=== PATIENT | female | born 1945 | race Caucasian/White ===

== ENCOUNTER 2020-08-08 15:13 | Observation (INO) | payer MEDICARE, BC ==
--- NOTE | 2020-08-08 16:30 | EDM.PDOC ---
ED HPI GENERAL MEDICAL PROBLEM - General Chief Complaint: General Stated Complaint: NOT FEELING WELL Time Seen by Provider: 08/08/20 16:15 Source of Information: Reports: Patient History Limitations: Reports: No Limitations - History of Present Illness INITIAL COMMENTS - FREE TEXT/NARRATIVE: Patient states overall that she is just not feeling well ongoing now for 3 to 4 days she says maybe her shortness of breath is gotten a little worse in the last 12 24 hrs. and she is also had diarrhea 3 times a day soft brownish stool she states about 3 times during the day. She says she has been eating and drinking normally she had marci crackers for breakfast and oatmeal for lunch today and has been drinking plenty of water with no issues she denies any pain at this time. She has no other complaints at this time. Onset: Gradual Duration: Day(s): Associated Symptoms: Reports: Shortness of Breath. Denies: Confusion, Chest Pain, Cough, cough w sputum, Diaphoresis, Fever/Chills, Headaches, Loss of Appetite, Malaise, Nausea/Vomiting (Patient states she has normal daily shortness of breath unsure if this is may be just a little bit worse she denies any ESTRADA PND orthopnea no signs symptoms any congestive heart failure she denies any lower extremity edema), Syncope - Related Data Allergies Allergy/AdvReac Type Severity Reaction Status Date / Time azithromycin Allergy Nausea Verified 08/08/20 16:00 Home Meds: Home Meds Aspirin [Halfprin] 81 mg PO DAILY 03/28/18 [History] Cholecalciferol (Vitamin D3) [Vitamin D3] 1,000 unit PO DAILY 03/28/18 [History] Ferrous Sulfate [Slow Fe] 142 mg PO TID 03/28/18 [History] Ibuprofen 200 - 600 tab PO Q4H PRN 03/28/18 [History] Lisinopril 10 mg PO DAILY 03/28/18 [History] Simvastatin 5 mg PO MOWEFR 03/28/18 [History] metFORMIN HCl [Glucophage] 1,000 mg PO BID 03/28/18 [History] Acetaminophen/Diphenhydramine [Tylenol Pm Ex-Strength Caplet] 1 tab PO BEDTIME PRN 08/08/20 [History] Albuterol Sulfate [Albuterol Sulfate HFA] 2 puff INH Q4H PRN 08/08/20 [History] Cyanocobalamin (Vitamin B-12) [B-12] 1,000 mcg PO DAILY 08/08/20 [History] Magnesium Hydroxide [Milk of Magnesia] 30 ml PO DAILY PRN 08/08/20 [History] Omeprazole 20 mg PO DAILY 08/08/20 [History] Psyllium [Metamucil] 5 tsp PO DAILY 08/08/20 [History] Past Medical History HEENT History: Reports: Cataract Cardiovascular History: Reports: High Cholesterol, Hypertension Respiratory History: Reports: None Gastrointestinal History: Reports: GERD Genitourinary History: Reports: Chronic Renal Insuffiency Musculoskeletal History: Reports: Arthritis Psychiatric History: Reports: None Endocrine/Metabolic History: Reports: Vitamin D Deficiency Hematologic History: Reports: None Oncologic (Cancer) History: Reports: Squamous Cell Carcinoma Dermatologic History: Reports: Other (See Below) Other Dermatologic History: squamous cell carcinoma - Infectious Disease History Infectious Disease History: Reports: None Social & Family History - Family History Family Medical History: No Pertinent Family History - Tobacco Use Tobacco Use Status *Q: Never Tobacco User - Caffeine Use Caffeine Use: Reports: Coffee - Recreational Drug Use Recreational Drug Use: No ED ROS GENERAL - Review of Systems Review Of Systems: See Below Constitutional: Reports: No Symptoms. Denies: Fever, Chills, Malaise, Weakness, Fatigue, Night Sweats, Diaphoresis, Decreased Appetite HEENT: Reports: No Symptoms Respiratory: Reports: Shortness of Breath. Denies: Wheezing, Pleuritic Chest Pain, Cough, Sputum, Hemoptysis Cardiovascular: Reports: No Symptoms Endocrine: Reports: No Symptoms GI/Abdominal: Reports: No Symptoms. Denies: Abdominal Pain, Anorexia, Black Stool, Bloody Stool, Constipation, Diarrhea, Decreased Appetite, Distension, Flatus, Hematemesis, Hematochezia, Melena, Nausea, Vomiting : Reports: No Symptoms. Denies: Discharge, Dysuria, Flank Pain, Frequency Musculoskeletal: Reports: No Symptoms Skin: Reports: No Symptoms Neurological: Reports: No Symptoms Psychiatric: Reports: No Symptoms Hematologic/Lymphatic: Reports: No Symptoms Immunologic: Reports: No Symptoms ED EXAM, GENERAL - Physical Exam Exam: See Below Exam Limited By: No Limitations General Appearance: Alert, WD/WN, No Apparent Distress Eye Exam: Bilateral Eye: Normal Inspection, PERRL Ears: Normal External Exam, Normal Canal, Hearing Grossly Normal, Normal TMs Nose: Normal Inspection, Normal Mucosa, No Blood Throat/Mouth: Normal Inspection, Normal Lips, Normal Teeth, Normal Gums, Normal Oropharynx, Normal Voice, No Airway Compromise, Other (mmm) Head: Atraumatic, Normocephalic Neck: Normal Inspection, Supple, Non-Tender, Full Range of Motion Respiratory/Chest: No Respiratory Distress, Lungs Clear, Normal Breath Sounds, No Accessory Muscle Use, Chest Non-Tender Cardiovascular: Normal Peripheral Pulses, Regular Rate, Rhythm, No Edema, No Gallop, No JVD, No Murmur, No Rub GI/Abdominal: Normal Bowel Sounds, Soft, Non-Tender, No Organomegaly, No Distention, No Abnormal Bruit, No Mass, Pelvis Stable Back Exam: Normal Inspection, Full Range of Motion Extremities: Normal Inspection, Normal Range of Motion, Non-Tender, No Pedal Edema, Normal Capillary Refill Neurological: Alert, Oriented, CN II-XII Intact, Normal Cognition, Normal Gait, Normal Reflexes, No Motor/Sensory Deficits, Other (=iron assorter blat 5/5 ue le blat ) Psychiatric: Normal Affect, Normal Mood Skin Exam: Warm, Dry, Intact, Normal Color, No Rash Course - Vital Signs Text/Narrative:: ekg cbc bmp UA cxr BMP shows a sodium of 120 baseline found is 132 last visit she was placed inpatient approximately 1 year ago for IV fluids discharged after 24 hours Last Recorded V/S: Last Vital Signs Temp 36.2 C 08/08/20 15:57 Pulse 52 L 08/08/20 15:57 Resp 16 08/08/20 15:57 BP 154/51 H 08/08/20 15:57 Pulse Ox 98 08/08/20 15:57 - Orders/Labs/Meds Orders: Active Orders 24 hr Category Date Time Status UA W/O MICR POC [POC] Stat Lab 08/08/20 16:32 Ordered Labs: Laboratory Tests 08/08/20 08/08/20 Range/Units 16:44 16:44 WBC 10.7 H (4.0-10.0) x10^3/uL RBC 3.65 L (4.00-5.50) x10^6/uL Hgb 10.5 L (12.0-16.0) g/dL Hct 30.5 L (33.0-47.0) % MCV 83.6 D (78.0-93.0) fL MCH 28.8 (26.0-32.0) pg MCHC 34.4 (32.0-36.0) g/dL RDW Coeff of Jake 12.3 (10.0-15.0) % Plt Count 318 D (130-400) x10^3/uL Neut % (Auto) 65.4 (50.0-80.0) % Lymph % (Auto) 24.2 L (25.0-50.0) % [place] % (Auto) 5.8 (2.0-11.0) % Eos % (Auto) 4.0 (0.0-4.0) % Baso % (Auto) 0.6 (0.2-1.2) % Sodium 120 L* (136-145) mmol/L Potassium 4.3 (3.5-5.1) mmol/L Chloride 89 L (98-107) mmol/L Carbon Dioxide 20 L (21-32) mmol/L Anion Gap 15.3 H (5-15) mmol/L BUN 16 (7-18) mg/dL Creatinine 1.1 H (0.55-1.02) mg/dL Est Cr Clr Drug Dosing 31.25 mL/min Estimated GFR (MDRD) 48 Glucose 115 H (70-99) mg/dL Calcium 8.4 L (8.5-10.1) mg/dL Departure - Departure Time of Disposition: 17:50 Disposition: Refer to Observation Condition: Good Clinical Impression: Hyponatremia, Weakness - Discharge Information *PRESCRIPTION DRUG MONITORING PROGRAM REVIEWED*: No *COPY OF PRESCRIPTION DRUG MONITORING REPORT IN PATIENT STALIN: No Referrals: Mary Jo Larson MD [Primary Care Provider] - Forms: ED Department Discharge Sepsis Event Note (ED) - Evaluation Sepsis Screening Result: No Definite Risk - Focused Exam Vital Signs: Vital Signs Temp Pulse Resp BP Pulse Ox 08/08/20 15:57 36.2 C 52 L 16 154/51 H 98 - Problem List & Annotations (1) Hyponatremia SNOMED Code(s): 88393372 Code(s): E87.1 - HYPO-OSMOLALITY AND HYPONATREMIA Status: Acute Current Visit: Yes (2) Diarrhea SNOMED Code(s): 62052172 Code(s): R19.7 - DIARRHEA, UNSPECIFIED Status: Acute Current Visit: No (3) Weakness SNOMED Code(s): 82602181 Code(s): R53.1 - WEAKNESS Status: Acute Current Visit: Yes - My Orders Last 24 Hours: My Active Orders 08/08/20 16:32 UA W/O MICR POC [POC] Stat - Assessment/Plan Admission H&P: Please use this note as an admission H&P Last 24 Hours: My Active Orders 08/08/20 16:32 UA W/O MICR POC [POC] Stat
[2020-08-08 17:13] LABS: ANION GAP 15.3 mmol/L (5-15)
[2020-08-08] MEDS ORDERED: Sodium Chloride 0.9% 1,000 ML IV SCH (19:30)
[2020-08-08] MEDS ORDERED: Sodium Chloride 0.9% 10 ML Syringe FLUSH PRN (19:50)
[2020-08-08] MEDS ORDERED: Acetaminophen/Diphenhydramine 500-25 MG Tab PO PRN (20:37)
[2020-08-08] MEDS ORDERED: Aspirin 81 MG Tab.EC PO SCH (20:45)
[2020-08-08] MEDS: metFORMIN 500 MG Tab PO SCH (21:00)
[2020-08-09 07:36] LABS: ANION GAP 15.2 mmol/L (5-15)
[2020-08-09] MEDS ORDERED: Omeprazole 20 MG Cap.CR PO SCH (08:00)
[2020-08-09] MEDS: metFORMIN 500 MG Tab PO SCH (08:20)
--- NOTE | 2020-08-09 10:07 | PCM.DCSUM1 ---
Discharge Summary - Hospital Course Free Text/Narrative:: Patient was rechecked this morning states she feels much better overall she states she did have one episode of vomiting after eating breakfast when she got gagged but that is nothing out of her abnormal medical issues. She states overall she is okay with going home. She says she slept well through the night and has no issues this morning. Diagnosis: Stroke: No Modified [place] Scale: No Symptoms at All Modified [place] Scale Score: 0 - Discharge Data Discharge Date: 08/09/20 Discharge Disposition: Home, Self-Care 01 Condition: Good - Referral to Home Health Primary Care Physician: Mary Jo Larson MD - Discharge Diagnosis/Problem(s) (1) Hyponatremia SNOMED Code(s): 91165494 ICD Code: E87.1 - HYPO-OSMOLALITY AND HYPONATREMIA Status: Acute Current Visit: Yes (2) Diarrhea SNOMED Code(s): 63573421 ICD Code: R19.7 - DIARRHEA, UNSPECIFIED Status: Acute Current Visit: No (3) Weakness SNOMED Code(s): 52358769 ICD Code: R53.1 - WEAKNESS Status: Acute Current Visit: Yes - Patient Instructions Diet: Fluid Restriction, Diabetic Diet Fluid Restriction: 1500 mL Activity: As Tolerated Showering/Bathing: June Shower - Discharge Plan *PRESCRIPTION DRUG MONITORING PROGRAM REVIEWED*: No *COPY OF PRESCRIPTION DRUG MONITORING REPORT IN PATIENT STALIN: No Home Medications: Home Meds Aspirin [Halfprin] 81 mg PO DAILY 03/28/18 [History] Cholecalciferol (Vitamin D3) [Vitamin D3] 1,000 unit PO DAILY 03/28/18 [History] Ferrous Sulfate [Slow Fe] 142 mg PO TID 03/28/18 [History] Ibuprofen 200 - 600 mg PO Q4H PRN 03/28/18 [History] Lisinopril 20 mg PO DAILY 03/28/18 [History] Simvastatin 5 mg PO MOWEFR 03/28/18 [History] metFORMIN HCl [Glucophage] 1,000 mg PO BIDMEALS 03/28/18 [History] Acetaminophen/Diphenhydramine [Tylenol Pm Ex-Strength Caplet] 1 tab PO BEDTIME PRN 08/08/20 [History] Albuterol [Proventil HFA] 2 puff INH Q4H PRN 08/08/20 [History] Cyanocobalamin (Vitamin B-12) [B-12] 1,000 mcg PO DAILY 08/08/20 [History] Diclofenac Sodium [Voltaren 1% Gel] 2 g TOP BID 08/08/20 [History] Latanoprost/Pf [Latanoprost 0.005% Eye Drop] 1 drop EYEBOTH BEDTIME 08/08/20 [History] Magnesium Hydroxide [Milk of Magnesia] 30 ml PO DAILY PRN 08/08/20 [History] Omeprazole 20 mg PO DAILY 08/08/20 [History] Psyllium Husk (With Sugar) [Metamucil Powder] 1 tsp PO DAILY 08/09/20 [History] Oxygen Therapy Mode: Room Air Forms: ED Department Discharge Referrals: Mary Jo Larson MD [Primary Care Provider] - - Discharge Summary/Plan Comment DC Time >30 min.: No - General Info Date of Service: 08/09/20 Admission Dx/Problem (Free Text: Weakness, hyponatremia, - Review of Systems General: Reports: No Symptoms HEENT: Reports: No Symptoms Pulmonary: Reports: No Symptoms Cardiovascular: Reports: No Symptoms Gastrointestinal: Reports: No Symptoms Genitourinary: Reports: No Symptoms Musculoskeletal: Reports: No Symptoms Skin: Reports: No Symptoms Neurological: Reports: No Symptoms Psychiatric: Reports: No Symptoms - Patient Data Vitals - Most Recent: Last Vital Signs Temp 35.6 C L 08/09/20 05:16 Pulse 59 L 08/09/20 05:16 Resp 16 08/09/20 05:16 BP 155/56 H 08/09/20 05:16 Pulse Ox 100 08/09/20 05:16 Weight - Most Recent: 71.214 kg I&O - Last 24 hours: Intake & Output 08/08/20 08/09/20 08/09/20 22:59 06:59 14:59 Intake Total 542 120 Output Total 925 Balance -383 120 Lab Results - Last 24 hrs: Laboratory Results - last 24 hr 08/08/20 08/08/20 08/08/20 Range/Units 16:44 16:44 17:45 WBC 10.7 H (4.0-10.0) x10^3/uL RBC 3.65 L (4.00-5.50) x10^6/uL Hgb 10.5 L (12.0-16.0) g/dL Hct 30.5 L (33.0-47.0) % MCV 83.6 D (78.0-93.0) fL MCH 28.8 (26.0-32.0) pg MCHC 34.4 (32.0-36.0) g/dL RDW Coeff of Jake 12.3 (10.0-15.0) % Plt Count 318 D (130-400) x10^3/uL Neut % (Auto) 65.4 (50.0-80.0) % Lymph % (Auto) 24.2 L (25.0-50.0) % Lane % (Auto) 5.8 (2.0-11.0) % Eos % (Auto) 4.0 (0.0-4.0) % Baso % (Auto) 0.6 (0.2-1.2) % Sodium 120 L* (136-145) mmol/L Potassium 4.3 (3.5-5.1) mmol/L Chloride 89 L (98-107) mmol/L Carbon Dioxide 20 L (21-32) mmol/L Anion Gap 15.3 H (5-15) mmol/L BUN 16 (7-18) mg/dL Creatinine 1.1 H (0.55-1.02) mg/dL Est Cr Clr Drug Dosing 31.25 mL/min Estimated GFR (MDRD) 48 Glucose 115 H (70-99) mg/dL POC Glucose (70-99) mg/dL Calcium 8.4 L (8.5-10.1) mg/dL Urine Color Yellow (YELLOW) Urine Appearance Clear (CLEAR) Urine pH 5.5 (5.0-8.0) Ur Specific [place] 1.015 Urine Protein 30 H (NEGATIVE) mg/dL Urine Glucose (UA) Negative (NEGATIVE) mg/dL Urine Ketones Negative (NEGATIVE) mg/dL Urine Occult Blood Trace-lysed H (NEGATIVE) Urine Nitrite Negative (NEGATIVE) Urine Bilirubin Negative (NEGATIVE) Urine Urobilinogen 0.2 (0.2) EU/dL Ur Leukocyte Esterase Negative (NEGATIVE) SARS CoV-2 RNA Rapid CHERIE (NEGATIVE) 08/08/20 08/09/20 08/09/20 Range/Units 18:00 06:20 06:20 WBC 11.2 H (4.0-10.0) x10^3/uL RBC 3.61 L (4.00-5.50) x10^6/uL Hgb 10.5 L (12.0-16.0) g/dL Hct 30.5 L (33.0-47.0) % MCV 84.5 (78.0-93.0) fL MCH 29.1 (26.0-32.0) pg MCHC 34.4 (32.0-36.0) g/dL RDW Coeff of Jake 12.6 (10.0-15.0) % Plt Count 265 (130-400) x10^3/uL Neut % (Auto) 67.2 (50.0-80.0) % Lymph % (Auto) 21.7 L (25.0-50.0) % Lane % (Auto) 6.4 (2.0-11.0) % Eos % (Auto) 4.2 H (0.0-4.0) % Baso % (Auto) 0.5 (0.2-1.2) % Sodium 124 L* (136-145) mmol/L Potassium 4.2 (3.5-5.1) mmol/L Chloride 95 L (98-107) mmol/L Carbon Dioxide 18 L (21-32) mmol/L Anion Gap 15.2 H (5-15) mmol/L BUN 15 (7-18) mg/dL Creatinine 1.0 (0.55-1.02) mg/dL Est Cr Clr Drug Dosing 34.38 mL/min Estimated GFR (MDRD) 54 Glucose 90 (70-99) mg/dL POC Glucose (70-99) mg/dL Calcium 8.3 L (8.5-10.1) mg/dL Urine Color (YELLOW) Urine Appearance (CLEAR) Urine pH (5.0-8.0) Ur Specific [place] Urine Protein (NEGATIVE) mg/dL Urine Glucose (UA) (NEGATIVE) mg/dL Urine Ketones (NEGATIVE) mg/dL Urine Occult Blood (NEGATIVE) Urine Nitrite (NEGATIVE) Urine Bilirubin (NEGATIVE) Urine Urobilinogen (0.2) EU/dL Ur Leukocyte Esterase (NEGATIVE) SARS CoV-2 RNA Rapid CHERIE Negative (NEGATIVE) 08/09/20 Range/Units 06:20 WBC (4.0-10.0) x10^3/uL RBC (4.00-5.50) x10^6/uL Hgb (12.0-16.0) g/dL Hct (33.0-47.0) % MCV (78.0-93.0) fL MCH (26.0-32.0) pg MCHC (32.0-36.0) g/dL RDW Coeff of Jake (10.0-15.0) % Plt Count (130-400) x10^3/uL Neut % (Auto) (50.0-80.0) % Lymph % (Auto) (25.0-50.0) % Lane % (Auto) (2.0-11.0) % Eos % (Auto) (0.0-4.0) % Baso % (Auto) (0.2-1.2) % Sodium (136-145) mmol/L Potassium (3.5-5.1) mmol/L Chloride (98-107) mmol/L Carbon Dioxide (21-32) mmol/L Anion Gap (5-15) mmol/L BUN (7-18) mg/dL Creatinine (0.55-1.02) mg/dL Est Cr Clr Drug Dosing mL/min Estimated GFR (MDRD) Glucose (70-99) mg/dL POC Glucose 90 (70-99) mg/dL Calcium (8.5-10.1) mg/dL Urine Color (YELLOW) Urine Appearance (CLEAR) Urine pH (5.0-8.0) Ur Specific [place] Urine Protein (NEGATIVE) mg/dL Urine Glucose (UA) (NEGATIVE) mg/dL Urine Ketones (NEGATIVE) mg/dL Urine Occult Blood (NEGATIVE) Urine Nitrite (NEGATIVE) Urine Bilirubin (NEGATIVE) Urine Urobilinogen (0.2) EU/dL Ur Leukocyte Esterase (NEGATIVE) SARS CoV-2 RNA Rapid CHERIE (NEGATIVE) Med Orders - Current: Current Medications Acetaminophen/Diphenhydramine HCl (Acetaminophen/Diphenhydramine 500-25 Mg Tab) 1 tab PO BEDTIME PRN PRN Reason: Insomnia Aspirin (Aspirin 81 Mg Tab.Ec) 81 mg PO BEDTIME ANA Sodium Chloride (Normal Saline) 1,000 mls @ 50 mls/hr IV ASDIRECTED ANA Last Admin: 08/08/20 19:00 Dose: 50 mls/hr Documented by: Metformin HCl (Metformin 500 Mg Tab) 1,000 mg PO BIDMEALS [facility] Last Admin: 08/09/20 08:20 Dose: 1,000 mg Documented by: Omeprazole (Omeprazole 20 Mg Cap.Cr) 20 mg PO DAILY [facility] Last Admin: 08/09/20 08:20 Dose: 20 mg Documented by: Simvastatin (Simvastatin 10 Mg Tab) 5 mg PO MoWeFr@0800 [facility] Sodium Chloride (Sodium Chloride 0.9% 10 Ml Syringe) 10 ml FLUSH ASDIRECTED PRN PRN Reason: Keep Vein Open Discontinued Medications Aspirin (Aspirin 81 Mg Tab.Ec) 81 mg PO DAILY [facility] Last Admin: 08/08/20 20:59 Dose: 81 mg Documented by: - Exam General: Reports: Alert, Oriented HEENT: Reports: Pupils Equal, Pupils Reactive, EOMI, Mucous Membr. Moist/[place] Neck: Reports: Supple Lungs: Reports: Clear to Auscultation, Normal Respiratory Effort Cardiovascular: Reports: Regular Rate, Regular Rhythm GI/Abdominal Exam: Normal Bowel Sounds, Soft, Non-Tender, No Organomegaly, No Distention Back Exam: Reports: Normal Inspection, Full Range of Motion Extremities: Normal Inspection, Normal Range of Motion, Non-Tender, No Pedal Edema, Normal Capillary Refill Skin: Reports: Warm, Dry, Intact Neurological: Reports: No New Focal Deficit Psy/Mental Status: Reports: Alert, Normal Affect, Normal Mood
[2020-08-09] MEDS ORDERED: Aspirin 81 MG Tab.EC PO SCH (20:00)
[2020-08-10] MEDS ORDERED: Simvastatin 10 MG Tab PO SCH (08:00)
== END 2020-08-09 12:20 | disposition home or self-care (01) ==
LOC: VM.ED 15:13 → VM.MS 18:20
PROVIDERS: ADMIT Physician Assistant Medical; ATTEND Physician Assistant Medical
DX: R19.7 Diarrhea, unspecified (principal); R53.1 Weakness; E87.1 Hypo-osmolality and hyponatremia; E78.00 Pure hypercholesterolemia, unspecified; I12.9 Hypertensive chronic kidney disease with stage 1 through stage 4 chronic kidney disease, or unspecified chronic kidney disease; N18.9 Chronic kidney disease, unspecified; Z20.822 Contact with and (suspected) exposure to COVID-19; Z88.1 Allergy status to other antibiotic agents; Z79.82 Long term (current) use of aspirin; Z79.899 Other long term (current) drug therapy
CPT/HCPCS: 36415; 80048; 81003; 82947; 85025; 99217; 99220; 99285; A9270; G0378; J7030; U0002